=== PATIENT | male | born 1990 | race Caucasian/White ===

== ENCOUNTER 2017-03-02 07:04 | Inpatient (IN) | payer BC, OTHER ==
[~2017-03-02] VITALS: Ht 170.2 cm; Wt 56.7 kg
[2017-03-02 09:30] VITALS: BP 107/70
--- NOTE | 2017-03-02 09:30 | NUR ---
Intake office assessment; Patient is a 26 year old male, AOX4, presented to [facility] to Detoxify from Heroin and crystal Meth. Patient flew in from [place]. He is the primary source of information. Patient appears mildly intoxicated with flushed face and appears to be nervous but remains cooperative. Admitting vital signs are as follows; BP 107/70, HR 68, respirations 18, SPO2 100% on room air, temperature of 97.7, denies any pain. Patient admitted that he smoked "a tenth" of Heroin and took 30mg of Oxycodone prior to admission. Patient denies any allergies and denies history of seizures. Patient did not bring any home medications and denies taking any medications at home. Patient was educated regarding unit policies and protocols, verbalized understanding. Further assessment to be conducted when patient is up on the unit.
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
[2017-03-02 10:28] LABS: *AMPHETAMINE, URINE POSITIVE (NEGATIVE); *BARBITURATE, URINE NEGATIVE (NEGATIVE); *CANNABINOID, URINE POSITIVE (NEGATIVE); *COCCAINE, URINE NEGATIVE (NEGATIVE); *OPIATE, URINE POSITIVE (NEGATIVE); *PHENCYCLIDINE SCREEN,URINE NEGATIVE (NEGATIVE)
[2017-03-02] MEDS ORDERED: MAGNESIUM HYDROXIDE 30 ML LIQUID UDC PO PRN (11:00)
[2017-03-02] MEDS ORDERED: LOPERAMIDE HCL 2 MG CAPSULE PO PRN ×2 (11:00)
[2017-03-02] MEDS ORDERED: MAG HYDROX/AL HYDROX/SIMETH 30 ML LIQUID UDC PO PRN (11:00)
[2017-03-02] MEDS ORDERED: ONDANSETRON 4 MG/2 ML VIAL IM PRN (11:00)
[2017-03-02] MEDS ORDERED: DICYCLOMINE HCL 20 MG TABLET PO PRN (11:00)
[2017-03-02] MEDS ORDERED: MIRALAX 17 GM POWD.PACK PO PRN (11:00)
[2017-03-02] MEDS ORDERED: IBUPROFEN 600 MG TABLET PO PRN (11:00)
[2017-03-02] MEDS ORDERED: HYDROXYZINE PAMOATE 25 MG CAPSULE PO PRN (11:00)
[2017-03-02] MEDS ORDERED: ONDANSETRON ODT 4 MG TAB.RAPDIS SL PRN (11:00)
[2017-03-02] MEDS ORDERED: diphenhydrAMINE 50 MG CAPSULE PO PRN (11:00)
[2017-03-02] MEDS ORDERED: ACETAMINOPHEN 325 MG TABLET PO PRN (11:00)
[2017-03-02] MEDS ORDERED: CLONIDINE HCL 0.1 MG TABLET PO PRN (11:00)
[2017-03-02] MEDS ORDERED: BUPRENORPHINE HCL 2 MG TAB.SUBL SL PRN (11:00)
[2017-03-02] MEDS ORDERED: METHOCARBAMOL 750 MG TABLET PO PRN (11:00)
[2017-03-02 12:00] VITALS: BP 99/65
[2017-03-02 13:14] LABS: BASOPHILS # (AUTO) 0.1 K/uL (0.0-8.0); BASOPHILS % (AUTO) 1.2 % (0.0-2.0); EOSINOPHILS # (AUTO) 0.7 K/uL (0.0-0.7); EOSINOPHILS % (AUTO) 10.2 % (0.0-7.0); HEMATOCRIT 39.9 % (40-50); HEMOGLOBIN 13.6 G/DL (14.0-18.0); LYMPHOCYTES # (AUTO) 2.9 K/UL (0.8-4.8); LYMPHOCYTES % (AUTO) 43.9 % (20.5-51.5); MEAN CORPUSCULAR HEMOGLOBIN 30.7 UUG (27.0-31.0); MEAN CORPUSCULAR HGB CONC 34 g/dL (32.0-37.0); MEAN CORPUSCULAR VOLUME 90.1 FL (82.0-92.0); MONOCYTES # (AUTO) 0.6 K/UL (0.1-1.30); MONOCYTES % (AUTO) 8.1 % (0.0-11.0); NEUTROPHILS # (AUTO) 2.5 K/UL (1.8-8.9); NEUTROPHILS % (AUTO) 36.6 % (38.5-71.5); PLATELET COUNT (AUTO) 209 K/UL (150-450); RED BLOOD CELL COUNT(AUTO) 4.43 MIL/UL (4.7-6.1); RED CELL DISTRIBUTION WIDTH 12.1 % (11.5-14.5); WHITE BLOOD COUNT (AUTO) 6.8 K/UL (4.0-11.2)
[2017-03-02 13:30] LABS: ETHANOL < 3 MG/DL (0-0)
[2017-03-02 13:32] LABS: ALANINE AMINOTRANSFERASE 12 U/L (16-63); ALBUMIN 3.7 g/dL (3.4-5.0); ALKALINE PHOSPHATASE 51 U/L (50-136); ASPARTATE AMINOTRANSFERASE 16 U/L (15-37); BILIRUBIN,TOTAL 0.2 mg/dL (0.2-1.0); CALCIUM 8.7 mg/dL (8.5-10.1); CARBON DIOXIDE 29 mmol/L (21-32); CHLORIDE 103 mmol/L (98-107); GFR 91 mL/min (>60); GLUCOSE 93 mg/dL (74-106); POTASSIUM 3.5 mmol/L (3.5-5.1); SODIUM SERUM 139 mmol/L (136-145); TOTAL PROTEIN, SERUM 6.6 g/dL (6.4-8.2); UREA NITROGEN, BLOOD 13 mg/dL (7-18)
[2017-03-02 13:35] LABS: THYROID STIMULATING HORMONE 1.029 mIU/mL (0.358-3.740)
[2017-03-02 14:02] LABS: HIV-1 p24 ANTIGEN NON REACTIVE (NONREACTIVE); HIV-1/2 ANTIBODY NON REACTIVE (NONREACTIVE)
[2017-03-02 16:00] VITALS: BP 96/61
--- NOTE | 2017-03-02 18:10 | NUR ---
PRN medication; Patient appears anxious, unable to sit still, complaining of muscle aches, hot and cold flushes and stomach cramps. Current COWS score is 12. PRN Subutex 4mg SL given as per MD order. Will continue to monitor patient for effectiveness of medication. Addendum: 03/02/17 at 1821 by BARBARA BARRERA LVN PRN Bentyl 20mg PO also given for stomach cramps.
--- NOTE | 2017-03-02 18:40 | NUR ---
Re-assessment; Patient's COWS went down to 8 from 12. Patient appears less anxious and able to sit still. PRN medication is effective.
--- NOTE | 2017-03-02 19:06 | NUR ---
End of shift note; Patient is AOX4. Patient to start a 3 day Subutex taper tomorrow per Dr. Oconnell. Educated patient regarding treatment plan and the importance of compliance to medication regime, patient verbalized. All safety measures secured. Met all needs.
--- NOTE | 2017-03-02 19:30 | NUR ---
START OF SHIFT NOTE : Patient is a 26 year old male, AOX4, presented to [facility] to Detoxify from Heroin and crystal Meth. Patient denies other past medical history. Family medical history discussed. Patient's father is an alcoholic. Patient lives with his and kids in [place]. He has been to detox/treatment before. Patient refuses PNA vaccination. Patient to start a 3 day Subutex taper on 03/03/[address] Oconnell. Educated patient regarding treatment plan and the importance of compliance to medication regime, patient verbalized. Pt remains compliant with the treatment plan. No PRNs were given during my shift. V/S remain WNL. RR=16, even and unlabored, lungs clear upon auscultation, abdomen soft and non- distended. Pt denies nausea, vomiting and diarrhea. Safety measures in place : bed on lowest position with side rails x2 up for safety, call light within reach. Will continue to monitor closely and offer help.
[2017-03-02 20:00] VITALS: BP 119/72
[2017-03-02] MEDS ORDERED: GABAPENTIN 300 MG CAPSULE PO SCH (21:00)
[2017-03-03] VITALS: BP 97/56
[2017-03-03 04:00] VITALS: BP 95/54
--- NOTE | 2017-03-03 06:51 | NUR ---
END OF SHIFT NOTE : Patient is a 26 year old male, AOX4, presented to [facility] to Detoxify from Heroin and crystal Meth. Patient denies other past medical history. Family medical history discussed. Patient's father is an alcoholic. Patient lives with his and kids in [place]. He has been to detox/treatment before. Patient to start a 3 day Subutex taper on 03/03/[address] Oconnell. Pt remains compliant with the treatment plan. No PRNs were given during my shift. V/S remain WNL. RR=16, even and unlabored, lungs clear upon auscultation, abdomen soft and non- distended. Pt denies nausea, vomiting and diarrhea. LAST COWS= 3 at 0400 , TZYOWI=569 ml, voided x 1, slept 8 hours. Safety measures in place : bed on lowest position with side rails x2 up for safety, call light within reach. Will continue to monitor closely and offer help.
--- NOTE | 2017-03-03 07:49 | NUR ---
Start of shift note; Patient is AOX4. Patient is a 26 year old male admitted on 03/02/17 for Opiate dependence. Patient to start 3 day Subutex taper today. NKA, on full code status, regular diet. Patient is on fall precaution. Patient slept for 8 hours last night. All safety measures secured. Will continue to monitor patient.
[2017-03-03 08:00] VITALS: BP 106/64
[2017-03-03] MEDS ORDERED: TUBERCULIN,PURIF.PROT.DERIV. 5 TU/0.1 ML TEST ID ONE (09:00)
[2017-03-03] MEDS: MULTIVITAMINS,THERAPEUTIC TABLET PO SCH (09:47)
[2017-03-03] MEDS: BUPRENORPHINE HCL 2 MG TAB.SUBL SL SCH ×2 (09:47→21:46)
[2017-03-03] MEDS: GABAPENTIN 300 MG CAPSULE PO SCH ×3 (09:47→21:46)
[2017-03-03] MEDS: DOCUSATE SODIUM 250 MG CAPSULE PO SCH (09:47)
[2017-03-03] MEDS ORDERED: 3 DAY TAPER BUPRENORPHINE -SERENITY PROTOCOL SL PRN (11:00)
[2017-03-03 12:00] VITALS: BP 102/63
[2017-03-03 14:06] LABS: HCV AB 3.5 s/co ratio (0.0-0.9); HEPATITIS B CORE AB, IgM Negative (Negative); HEPATITIS B SURFACE AG Negative (Negative)
[2017-03-03 16:00] VITALS: BP 101/50
--- NOTE | 2017-03-03 18:38 | NUR ---
End of shift note; Patient is AOX4. Patient to started a 3 day Subutex taper today per Dr. Oconnell, no adverse reactions noted. Patient remained compliant with treatment plan and medication regime. Medications were effective in reducing withdrawal symptoms. All safety measures secured. Met all needs.
--- NOTE | 2017-03-03 19:30 | NUR ---
START OF SHIFT NOTE : Patient is a 26 year old male, AOX4, presented to [facility] to Detoxify from Heroin and crystal Meth. Patient denies other past medical history. Family medical history discussed. Patient's father is an alcoholic. Patient lives with his and kids in [place]. He has been to detox/treatment before. Patient refuses PNA vaccination. Patient to start a 3 day Subutex taper on 03/03/[address] Oconnell. Educated patient regarding treatment plan and the importance of compliance to medication regime, patient verbalized. Pt remains compliant with the treatment plan. RR=16, even and unlabored, lungs clear upon auscultation, abdomen soft and non- distended. Pt denies nausea, vomiting and diarrhea. Safety measures in place : bed on lowest position with side rails x2 up for safety, call light within reach. Will continue to monitor closely and offer help.
[2017-03-03 20:00] VITALS: BP 118/49
[2017-03-04 04:00] VITALS: BP 97/55
--- NOTE | 2017-03-04 06:49 | NUR ---
END OF SHIFT NOTE : Patient is a 26 year old male, AOX4, presented to [facility] to Detoxify from Heroin and crystal Meth. Patient denies other past medical history. Family medical history discussed. Patient's father is an alcoholic. Patient lives with his and kids in [place]. He has been to detox/treatment before. Patient to start a 3 day Subutex taper on 03/03/[address] Oconnell. Pt remains compliant with the treatment plan. No PRNs were given during my shift. V/S remain WNL. RR=16, even and unlabored, lungs clear upon auscultation, abdomen soft and non- distended. Pt denies nausea, vomiting and diarrhea. LAST COWS= 2 at 0400 , [id number]=3549 ml, voided x 1, slept 6 hours. Safety measures in place : bed on lowest position with side rails x2 up for safety, call light within reach. Will continue to monitor closely and offer help.
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
[2017-03-04 08:09] VITALS: BP 101/61
[2017-03-04] MEDS: BUPRENORPHINE HCL 2 MG TAB.SUBL SL SCH ×3 (09:09→21:50)
[2017-03-04] MEDS: DOCUSATE SODIUM 250 MG CAPSULE PO SCH (09:09)
[2017-03-04] MEDS: MULTIVITAMINS,THERAPEUTIC TABLET PO SCH (09:10)
[2017-03-04] MEDS: GABAPENTIN 300 MG CAPSULE PO SCH ×3 (09:10→21:50)
[2017-03-04 13:55] VITALS: BP 119/60
[2017-03-04 17:20] VITALS: BP 126/65
--- NOTE | 2017-03-04 18:50 | NUR ---
END OF SHIFT Patient alert and oriented x4, vital signs were stable during shift. patient was compliant with therapeutic plan of care. Patient with admitting Dx: opiate dependence and is currently on day 2 of 3 day Subutex taper as ordered. Medication well tolerated, no ASE noted. 0900 assessment patient presented with: runny nose, mild nausea, tremors that can be felt but not seen, mild anxiety with cow score of: 6. 1300 assessment patient presented with:runny nose, tremors that can be felt but not seen, and mild anxiety with cow score of: 4. 1700 assessment patient presented with: stuffy nose, tremors that can be felt but not seen, and mil anxiety with cow score of: 3. Detox medication effective at reducing s/sx of withdrawal. Patient received no PRN medications during shift. Patient encouraged adequate PO fluid intake as tolerated. Encouraged to attend group therapies/sessions to learn new coping skills to prevent relapse, noted attending and participating, denies any SI/HI. Safety measures in place. call light kept with in reach. all needs met and rendered. patient endorsed to table games shift manager nurse, all pertinent information discussed.
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
[2017-03-04 20:14] VITALS: BP 138/68
[2017-03-05 00:35] VITALS: BP 117/65
[2017-03-05 04:15] VITALS: BP 93/45
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
[2017-03-05 08:00] VITALS: BP 105/64
[2017-03-05] MEDS ORDERED: BUPRENORPHINE HCL 2 MG TAB.SUBL SL SCH (09:00)
[2017-03-05] MEDS: DOCUSATE SODIUM 250 MG CAPSULE PO SCH (09:29)
[2017-03-05] MEDS: MULTIVITAMINS,THERAPEUTIC TABLET PO SCH (09:29)
[2017-03-05] MEDS: GABAPENTIN 300 MG CAPSULE PO SCH ×3 (09:29→22:01)
--- NOTE | 2017-03-05 11:59 | NUR ---
Hep C results: Hep C results 3.5H. Notified Dr. Oconnell and will speak with the client.
[2017-03-05 12:00] VITALS: BP 110/69
--- NOTE | 2017-03-05 12:48 | NUR ---
Transfer of Care: Transfer of care to receiving nurse. Patient is a 26 year old male admitted for opiate/meth and marijuana dependence who was placed on a 3-day Subutex taper as ordered. No adverse reactions noted. Patient is tolerating taper well. Prior to admission, patient was using 0.5 grams of Heroin, 0.5 grams of crystal meth, 1-2 joints of marijuana and total of 30 mg when available. Initial COWS 3. Patient presented with fatigue, anxiety and mild aches. Last COWS 0. Per patient, Subutex has been helping him with his withdrawal symptoms. Compliant with care and treatment. Participate in group and therapy sessions. All needs met and attended. Will continue to monitor closely.
--- NOTE | 2017-03-05 12:48 | NUR ---
Transfer of Care Received pt from Raina WELLS.
[2017-03-05 15:04] LABS: *AMPHETAMINE, URINE NEGATIVE (NEGATIVE); *BARBITURATE, URINE NEGATIVE (NEGATIVE); *CANNABINOID, URINE NEGATIVE (NEGATIVE); *COCCAINE, URINE NEGATIVE (NEGATIVE); *OPIATE, URINE NEGATIVE (NEGATIVE); *PHENCYCLIDINE SCREEN,URINE NEGATIVE (NEGATIVE)
[2017-03-05 16:00] VITALS: BP 122/75
--- NOTE | 2017-03-05 19:05 | NUR ---
End of Shift Endorsement given to nightshift nurse. Patient is a 26 year old male admitted for opiate/meth and marijuana dependence who was placed on a 3-day Subutex taper as ordered. No adverse reactions noted. Patient is tolerating taper well. Prior to admission, patient was using 0.5 grams of Heroin, 0.5 grams of crystal meth, 1-2 joints of marijuana and total of 30 mg when available. PT is on 3 day Subutex taper. Pt is tolerating the taper well AEB COWS 1 at 1600. VS WNL, Full Code. Intake: 2060ml, Void x2, BM x0.PT is alert and oriented x4. Pt is in STABLE condition at this time. Remains compliant with medication and diet regimen. All needs have been met, All safety measures in place per hospital policy. Bed in lowest position, side rails up x2, call-light within reach. Will continue to monitor
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
[2017-03-05] MEDS ORDERED: CLON0.1T14 PO (20:06)
[2017-03-05] MEDS ORDERED: HYDR-3895 PO (20:06)
[2017-03-05] MEDS ORDERED: METH-33 PO (20:06)
[2017-03-05] MEDS ORDERED: Gabapentin PO (20:06)
[2017-03-05] MEDS ORDERED: Ibuprofen PO (20:06)
[2017-03-05 20:21] VITALS: BP 106/67
[2017-03-06 00:14] VITALS: BP 101/61
[2017-03-06 04:04] VITALS: BP 107/61
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
--- NOTE | 2017-03-06 07:30 | NUR ---
START OF SHIFT NOTE: Report received from aluminum fabrication supervisor nurse. Pt is a 26 yo male admitted 5 for Opiate/Methamphetamine/Marijuana dependence. To be discharged this AM. Pt is alert and oriented X4. Color good, skin warm and dry. Respirations even and unlabored. Safety precautions observed. Call light within reach.
[2017-03-06 08:00] VITALS: BP 98/60
[2017-03-06] MEDS: DOCUSATE SODIUM 250 MG CAPSULE PO SCH (08:01)
[2017-03-06] MEDS: GABAPENTIN 300 MG CAPSULE PO SCH (08:01)
[2017-03-06] MEDS: MULTIVITAMINS,THERAPEUTIC TABLET PO SCH (08:01)
[2017-03-06] MEDS ORDERED: DICY20TA28 PO (08:24)
--- NOTE | 2017-03-06 08:30 | NUR ---
VSS AM meds administered. Discharge papers signed. No home meds.
--- NOTE | 2017-03-06 09:36 | NUR ---
Pt discharged in stable condition with all valuables and belongings. No home meds. Denies SI/HI. To [facility] via [facility] private car.
== END 2017-03-06 09:36 | disposition other institution (70) | DRG 895 ==
LOC: SRC 08:43
PROVIDERS: ADMIT Internal Medicine; ATTEND Internal Medicine
PROC: HZ2ZZZZ Detoxification Services for Substance Abuse Treatment (ICD-10-PCS; principal; 2017-03-02)
PROC: HZ31ZZZ Individual Counseling for Substance Abuse Treatment, Behavioral (ICD-10-PCS; 2017-03-03)
PROC: HZ41ZZZ Group Counseling for Substance Abuse Treatment, Behavioral (ICD-10-PCS; 2017-03-04)
DX: F11.23 Opioid dependence with withdrawal (principal); F15.20 Other stimulant dependence, uncomplicated; B19.20 Unspecified viral hepatitis C without hepatic coma; F17.210 Nicotine dependence, cigarettes, uncomplicated
CPT/HCPCS: 36415; 70030-TC; 80307; 80324; 80349; 80361; 83735; 84443; 85025; 86580; 86592; 86705; 86803; 87340; 87806; G6040-TC